=== PATIENT | female | born 2000 | race Hispanic/Latino ===

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

== ENCOUNTER 2021-11-16 00:41 | Observation (INO) | payer OTHER, MEDICAID, SELFPAY ==
[2021-11-16] VITALS (11 sets, daily range): BP systolic 88–147; BP diastolic 45–88; PULSE 100–136; RESP 17–27; TEMP 36.7–37.1; O2SAT 94–100
--- NOTE | 2021-11-16 | PATH_ITS ---
[facility] Accession Number: [id number] . 01 Material submitted: . product of conception - PRODUCTS OF CONCEPTION . 01 Diagnosis: A. Products of Conception, Removal: Immature chorionic villi with abnormal villous architecture; see comment. Decidua, gestational endometrium and implantation site. Fibrin and necroinflammatory debris. . . COMMENT: Mild architectural abnormality is present including inclusions and scalloping of the villi. Given the abnormal villous architecture, p57 immunostain is performed and is positive in the villous stromal cells and the cytotrophoblasts, excluding a complete molar gestation. The differential diagnosis includes a partial mole and hydropic villi. Tissue from block A1 will be sent for ploidy analysis by flow and results will be reported in an addendum. . * This test was developed and its performance characteristics determined by [employer]. It has not been cleared or approved by the U.S. Food and Drug Administration. The FDA has determined that such clearance or approval is not necessary. This test is used for clinical purposes. It should not be regarded as investigational or for research. MRV 11/24/2021 1521 Local . 01 Electronically signed: . Kassandra Reynolds MD, Pathologist NPI- [id number] . 01 Gross description: . The specimen is received in formalin labeled with the patient's name and products of conception, and consists of multiple caputo variable spongy to membranous soft tissue fragments admixed with hemorrhagic material aggregating to 9.1 x 4.4 x 2.3 cm. No tissue is identified. Check Cashier sections are submitted in cassettes A1-A2. ([id number]) /MRV 11/18/2021 1426 Local . 01 Pathologist provided ICD-10: O02.9 . 01 CPT . 511851, A02903 Specimen Comment: A courtesy copy of this report has been sent to [facility] Performed at: 01 [facility] [address] [facility], [place], [place] [id number] MD Steven Ryan MD Phone: [phone]
--- NOTE | 2021-11-16 00:56 | ED.PREGNANCY ---
HPI - General Chief complaint: Urogenital-Female Stated complaint: ABD PAIN Time Seen by Provider: 11/16/21 00:56 Source: patient Mode of arrival: Ambulatory History of Present Illness HPI Narrative: Patient is a 21-year-old female presenting with abdominal cramping and vaginal bleeding. She states that she is about 11-12 weeks she had ultrasound done 3 days ago. It was thought that she was probably miscarrying at that time. As she went home she has an appointment with OBGYN tomorrow. However tonight started having increased abdominal pain. She is says that as soon as she got here she has had excessive vaginal bleeding. It does appear that she is bleeding quite a bit and having abdominal pain. Related Data Allergies Allergy/AdvReac Type Severity Reaction Status Date / Time No Known Drug Allergies Allergy Verified 11/16/21 03:36 Exam Initial Vital Signs Initial Vital Signs: Vital Signs Temperature 98.7 F 11/16/21 00:49 Pulse Rate 119 H 11/16/21 00:49 Respiratory Rate 24 11/16/21 00:49 Blood Pressure 144/69 H 11/16/21 00:49 Pulse Oximetry 100 11/16/21 00:49 Oxygen Delivery Method 11/16/21 00:49 GENERAL: He is alert 21-year-old female appears uncomfortable and in pain HEENT: Head atraumatic,EOMI, pupils reactive, face symmetric, [moist] mucous membranes CARDIOVASCULAR: Regular rate and rhythm without murmurs, rubs or gallops. RESPIRATORY: Breath sounds equal bilaterally, no wheezes rales or rhonchi. ABDOMEN: Soft, tender more on left side than right side Normoactive bowel sounds all 4 quadrants. No guarding or rebound. PELVIC: External genitalia is normal, significant external vaginal blood clots significant blood in vaginal vault requiring suction. Os is open no tissue in on EXTREMITIES: Normal range of motion, no clubbing or edema. Neurovascularly intact NEUROLOGICAL: Alert and oriented x4.Normal gait and speech. SKIN: Warm, dry, no laceration, no petechiae, no rashes or lesions. Course Orders Ordered: ED Orders 11/16/21 00:55 CBC Auto Diff [Complete Blood Count AUTO DIFF] Stat CMP [Comprehensive Metabolic Panel] Stat HCG Quantitative /Beta subunit Stat Lactate (Lactic Acid) Stat 11/16/21 01:11 US OB <= 14 weeks fetus Stat 11/16/21 01:17 Type and Screen Stat 11/16/21 02:21 COVID19 -Nasal RAPID/Pre-Proc Stat Fentanyl (Fentanyl 100 Mcg/2 Ml Inj) 0 mcg IV Q5M PRN PRN Reason: Pain, Moderate (4-6) Hydromorphone HCl (Hydromorphone 2 Mg Inj) 0 mg IV Q5M PRN PRN Reason: Pain, Moderate (4-6) Lactated Ringer's (Lactated Ringers) 1,000 mls @ 100 mls/hr IV CONT ELISSA Last Admin: 11/16/21 03:34 Dose: 100 mls/hr Lactated Ringer's (Lactated Ringers) 1,000 mls @ 42 mls/hr IV CONT ELISSA Last Admin: 11/16/21 04:37 Dose: 42 mls/hr Ondansetron HCl (Ondansetron 4 Mg/2 Ml Inj) 4 mg IV NOW PRN PRN Reason: Nausea And Vomiting Last Admin: 11/16/21 04:38 Dose: 4 mg Oxycodone HCl (Oxycodone Ir 5 Mg Tablet) 5 mg PO PACUNOW PRN PRN Reason: Mild or moderate pain Last Admin: 11/16/21 04:38 Dose: 5 mg Discontinued Medications Hydromorphone HCl (Hydromorphone 0.5 Mg Inj) 0.5 mg IV NOW ONE Stop: 11/16/21 01:49 Last Admin: 11/16/21 01:51 Dose: 0.5 mg Documented By: RICKY Sodium Chloride (Normal Saline 0.9%) 1,000 mls @ 1,000 mls/hr IV BOLUS ONE Stop: 11/16/21 02:10 Last Infusion: 11/16/21 03:10 Dose: 0 mls/hr Documented By: Admin: 11/16/21 01:23 Dose: 1,000 mls/hr Documented By: RICKY Morphine Sulfate (Morphine 2 Mg/Ml Inj) 2 mg IV NOW ONE Stop: 11/16/21 01:30 Last Admin: 11/16/21 01:34 Dose: 2 mg Documented By: RICKY Morphine Sulfate (Morphine 2 Mg/Ml Inj) 2 mg IV NOW ONE Stop: 11/16/21 02:59 Last Admin: 11/16/21 03:05 Dose: 2 mg Documented By: RICKY Vital Signs Vital signs: Vital Signs - 8 hr 11/16/21 00:49 11/16/21 01:43 Temperature 98.7 F Pulse Rate 119 H 113 H Respiratory Rate 24 18 Blood Pressure 144/69 H 147/85 H Pulse Oximetry 100 98 Oxygen Delivery Method Room Air Room Air MDM - OB/Uterine Contractions Lab Data Result diagrams: 11/16/21 00:55 11/16/21 00:55 Labs: Lab Results 11/16/21 11/16/21 11/16/21 Range/Units 00:55 00:55 00:55 WBC 8.9 (4.5-11.0) X10^3/uL RBC 4.55 (4.0-5.2) X10^6/uL Hgb 12.5 (12.0-16.0) g/dL Hct 37.7 (36-46) % MCV 82.8 (80-100) fL MCH 27.6 (26-34) PG MCHC 33.3 (30-36) % RDW 13.5 (11.6-14.8) % Plt Count 270 (150-400) X10^3/uL Neut % (Auto) 63.8 (50-75) % Lymph % (Auto) 27.8 (25-40) % Summers % (Auto) 7.3 (3-14) % Eos % (Auto) 0.8 L (2-4) % Baso % (Auto) 0.3 (0-2) % Neut # (Auto) 5700 (0508-9815) /uL Lymph # (Auto) 2500 (3299-0923) /uL Summers # (Auto) 700 (0-900) /uL Eos # (Auto) 100 (0-450) /uL Baso # (Auto) 0 (0-100) /uL Sodium 137 (137-145) mmol/L Potassium 3.6 (3.4-5.1) mmol/L Chloride 101 (98-107) mmol/L Carbon Dioxide 25 (22-32) mmol/L BUN 8 (7-17) mg/dL Creatinine 0.44 L (0.52-1.04) mg/dL Estimated GFR > 60 (>60) mL/min BUN/Creatinine Ratio 18.2 (6-22) Glucose 110 H (70-100) mg/dL Lactate 1.1 (0.7-2.1) mmol/L Calcium 9.1 (8.4-10.2) mg/dL Total Bilirubin 0.7 (0.2-1.3) mg/dL AST 20 (14-36) IU/L ALT 13 (<35) IU/L Alkaline Phosphatase 81 (38-126) U/L Total Protein 8.0 (6.3-8.2) g/dL Albumin 4.1 (3.5-5.0) g/dL Globulin 3.9 (1.7-4.1) g/dL Albumin/Globulin Ratio 1.1 (1.0-2.8) HCG, Quant 3566.3 mIU/mL SARS-CoV-2 (PCR) (Negative) Blood Type Antibody Screen 11/16/21 11/16/21 Range/Units 01:17 02:21 WBC (4.5-11.0) X10^3/uL RBC (4.0-5.2) X10^6/uL Hgb (12.0-16.0) g/dL Hct (36-46) % MCV (80-100) fL MCH (26-34) PG MCHC (30-36) % RDW (11.6-14.8) % Plt Count (150-400) X10^3/uL Neut % (Auto) (50-75) % Lymph % (Auto) (25-40) % Summers % (Auto) (3-14) % Eos % (Auto) (2-4) % Baso % (Auto) (0-2) % Neut # (Auto) (9865-7907) /uL Lymph # (Auto) (7523-5426) /uL Summers # (Auto) (0-900) /uL Eos # (Auto) (0-450) /uL Baso # (Auto) (0-100) /uL Sodium (137-145) mmol/L Potassium (3.4-5.1) mmol/L Chloride (98-107) mmol/L Carbon Dioxide (22-32) mmol/L BUN (7-17) mg/dL Creatinine (0.52-1.04) mg/dL Estimated GFR (>60) mL/min BUN/Creatinine Ratio (6-22) Glucose (70-100) mg/dL Lactate (0.7-2.1) mmol/L Calcium (8.4-10.2) mg/dL Total Bilirubin (0.2-1.3) mg/dL AST (14-36) IU/L ALT (<35) IU/L Alkaline Phosphatase (38-126) U/L Total Protein (6.3-8.2) g/dL Albumin (3.5-5.0) g/dL Globulin (1.7-4.1) g/dL Albumin/Globulin Ratio (1.0-2.8) HCG, Quant mIU/mL SARS-CoV-2 (PCR) Negative (Negative) Blood Type O Positive Antibody Screen Negative Imaging Data US - DISABILITY INSURANCE CLAIM EXAMINER: Radiologist's Impression: [address] [address] Ultrasound Report Signed Patient: Nell Aiken MR#: [id number] : 2000 Acct:[id number] Age/Sex: 21 / F Date of Service: 11/16/21 Loc: Accession Number: [id number] ?? Procedure: US OB <= 14 weeks fetus Ordering Provider: Funmilayo Lanier D.O. PROCEDURE:? US OB <= 14 WEEKS FETUS ? INDICATIONS:? Likely miscarriage lots of blood ? OUTSIDE/PRIOR DATING DATA:? Last menstrual period (LMP):? Unknown.? First dating scan (date and location):? 10/07/2021.? Estimated date of delivery (ROMERO) from first dating scan:? 06/01/2022. ? TECHNIQUE:? Real-time scanning was performed of the fetus and maternal pelvic organs, with image documentation.? Endovaginal scanning was also performed to better visualize the fetus and maternal ovaries.? ? COMPARISON:? [facility], OB < 14 WEEKS + OB TRANSVAG, 10/07/2021, 20:50.? [facility], OB < 14 WEEKS + OB TRANSVAG, 11/14/2021, 17:33. ? FINDINGS:? ? Embryo:? There is an intrauterine with a gestational sac, yolk sac, and pole redemonstrated.? The crown-rump length measures up to 1.6 cm corresponding to gestational age of 8 weeks 0 days.? Similar to the prior study, no heart motion is identified.? There is interval migration of the gestational sac into the lower uterine segment. ? Maternal organs:? Ovaries not visualized. ? ? IMPRESSION:? ? 1. Findings consistent with demise redemonstrated with interval migration of the gestational sac into the lower uterine segment consistent with a spontaneous in progress.? ? We strive to produce accurate, complete, and clear reports of imaging services. To assist us in improving patient care, this report was composed using standard report templates and voice recognition software. Therefore, it may contain abnormal punctuation, insertions and/or omissions. Occasional wrong-word or sound-alike substitutions may occur. Though we review the report and make efforts to correct it, we do recommend that the report be read carefully in proper context to recognize any text inaccuracies. ? Dictated by: Steven Rangel M.D. on 11/16/2021 at 1:55 ? ? MDM Narrative Medical decision making narrative: The patient had recent ultrasound which confirmed 11 to 12 weeks IUP however I do not have these records. Concern now is for acute is hemorrhage in miscarriage. Ultrasound in the ED confirms demise. Patient is quite tachycardic in pain with significant blood loss at bedside. Patient is having significant pain and contractions. She states morphine did help very much she is given Dilaudid. Blood pressure remains stable however she continues to remain tachycardic which worsens when pain worsens. Dr Srivastava called and notified of patient. She was quickly in the ED at bedside and agreed is patient needs D&C. Discharge Plan Departure Patient Disposition: Admitted to Surgery Clinical Impression: Vaginal hemorrhage, Incomplete Admit Date/Time: 11/16/21 02:35 Admit Provider: Yessy Srivastava
--- NOTE | 2021-11-16 01:11 | DI.US.S_ITS ---
PROCEDURE: US OB <= 14 WEEKS FETUS INDICATIONS: Likely miscarriage lots of blood OUTSIDE/PRIOR DATING DATA: Last menstrual period (LMP): Unknown. First dating scan (date and location): 10/07/2021. Estimated date of delivery (ROMERO) from first dating scan: 06/01/2022. TECHNIQUE: Real-time scanning was performed of the fetus and maternal pelvic organs, with image documentation. Endovaginal scanning was also performed to better visualize the fetus and maternal ovaries. COMPARISON: [facility], , US OB < 14 WEEKS + OB TRANSVAG, 10/07/2021, 20:50. [facility], , US OB < 14 WEEKS + OB TRANSVAG, 11/14/2021, 17:33. FINDINGS: Embryo: There is an intrauterine with a gestational sac, yolk sac, and pole redemonstrated. The crown-rump length measures up to 1.6 cm corresponding to gestational age of 8 weeks 0 days. Similar to the prior study, no heart motion is identified. There is interval migration of the gestational sac into the lower uterine segment. Maternal organs: Ovaries not visualized. IMPRESSION: 1. Findings consistent with demise redemonstrated with interval migration of the gestational sac into the lower uterine segment consistent with a spontaneous in progress. We strive to produce accurate, complete, and clear reports of imaging services. To assist us in improving patient care, this report was composed using standard report templates and voice recognition software. Therefore, it may contain abnormal punctuation, insertions and/or omissions. Occasional wrong-word or sound-alike substitutions may occur. Though we review the report and make efforts to correct it, we do recommend that the report be read carefully in proper context to recognize any text inaccuracies. Dictated by: Steven Rangel M.D. on 11/16/2021 at 1:55 Approved by: Steven Rangel M.D. on 11/16/2021 at 2:01
[2021-11-16] MEDS: SODIUM CHLORIDE 0.9% 1,000 ML 1000 ML IV (01:23)
[2021-11-16 01:30] LABS: Add Manual Diff / Slide Review NO; Basophils Absolute Auto 0 /uL (0-100); Basophils Percent Auto 0.3 % (0-2); Eosinophils Absolute Auto 100 /uL (0-450); Eosinophils Percent Auto 0.8 % (2-4); Hematocrit 37.7 % (36-46); Hemoglobin 12.5 g/dL (12.0-16.0); Lymphocytes Absolute Auto 2500 /uL (1100-4500); Lymphocytes Percent Auto 27.8 % (25-40); Mean Corpuscular HGB Conc 33.3 % (30-36); Mean Corpuscular Hemoglobin 27.6 PG (26-34); Mean Corpuscular Volume 82.8 fL (80-100); Monocytes Absolute Auto 700 /uL (0-900); Monocytes Percent Auto 7.3 % (3-14); Neutrophils Absolute Auto 5700 /uL (1500-7000); Neutrophils Percent Auto 63.8 % (50-75); Platelet Count 270 X10^3/uL (150-400); Red Blood Cell Count 4.55 X10^6/uL (4.0-5.2); Red Cell Distribution Width 13.5 % (11.6-14.8); White Blood Cell Count 8.9 X10^3/uL (4.5-11.0)
--- NOTE | 2021-11-16 01:31 | PC.NURSE ---
Patient passing large clots, reports abdominal cramping. Ultrasound arrives at the bedside.
[2021-11-16] MEDS: MORPHINE 2 MG/ML INJ IV ×2 (01:34→03:05)
[2021-11-16 01:37] LABS: Lactate (Lactic Acid) 1.1 mmol/L (0.7-2.1)
[2021-11-16 01:38] LABS: Alanine Aminotransferase 13 IU/L (<35); Albumin 4.1 g/dL (3.5-5.0); Albumin Globulin Ratio 1.1 (1.0-2.8); Alkaline Phosphatase 81 U/L (38-126); Aspartate Aminotransferase 20 IU/L (14-36); BUN Creatinine Ratio 18.2 (6-22); Bilirubin Total 0.7 mg/dL (0.2-1.3); Blood Urea Nitrogen 8 mg/dL (7-17); Calcium 9.1 mg/dL (8.4-10.2); Carbon Dioxide 25 mmol/L (22-32); Chloride 101 mmol/L (98-107); Estimated Glomerular Filt Rate > 60 mL/min (>60); Globulin 3.9 g/dL (1.7-4.1); Glucose 110 mg/dL (70-100); HEMOLYSIS < 15 (0-50); Potassium 3.6 mmol/L (3.4-5.1); Sodium 137 mmol/L (137-145)
[2021-11-16] MEDS: HYDROMORPHONE 0.5 MG INJ IV (01:51)
[2021-11-16 01:53] LABS: HCG Quantitative /Beta subunit 3566.3 mIU/mL
--- NOTE | 2021-11-16 01:54 | PC.NURSE ---
OBGYN at the bedside
--- NOTE | 2021-11-16 02:05 | PM.GYNHP.1 ---
History of Present Illness History of Present Illness Reason for admission: vaginal bleeding Narrative: Nell Duncan is a 21 year old female who presented to the ED with a known missed A/B, with severe cramping and heavy bleeding. She is 11 weeks by dates, reports ultrasound in [facility] ED showed baby about 8 weeks with a miscarriage. She reports that she was seen in the ED and [facility] yesterday due to 2 dys of vaginal spotting. Reports in the ED she was told that she had a miscarriage. When she went home yesterday, she had onset of heavier bleeding with cramping. The cramping became severe, feels like contractions to her, later that night, about 5 hours ago. Due to the severity of the pain she person the ED. She had onset of heavy bleeding at that time, only changing about a pad every hour, but bleeding became heavier on her arrival. She has a history a vaginal delivery. [facility] Medical History (Updated 11/16/21 @ 03:04 by Yessy Srivastava MD) Healthy adult History of tuberculosis Social History marital status: Exam Vital Signs (past 8 hours): - 11/16/21 00:49 11/16/21 01:43 Temperature 98.7 F Pulse Rate 119 H 113 H Respiratory Rate 24 18 Blood Pressure 144/69 H 147/85 H Pulse Oximetry 100 98 Oxygen Delivery Method Room Air Room Air Oxygen Delivery Method Room Air Narrative Exam Narrative: General: Acute distress episodically when cramping hits. Non ill-appearing CV regular rhythm, tachycardic Lungs clear to auscultation bilaterally Extremities: No edema Perineum: Blood stained. No bleeding currently coming through vagina but chux pads soaked with blood and clots Per ED physician on speculum exam, pooling of blood, suctioned, cervix appeared open, but nothing coming through the cervix. Vagina immediately pooled with blood again. Objective Imaging US - abdomen: Radiologist's impression: [address] [address] Ultrasound Report Signed Patient: Nell Aiken MR#: [id number] : 2000 Acct:[id number] Age/Sex: 21 / F Date of Service: 11/16/21 Loc: ED Accession Number: [id number] ?? Procedure: US OB <= 14 weeks fetus Ordering Provider: Funmilayo Lanier D.O. PROCEDURE:? US OB <= 14 WEEKS FETUS ? INDICATIONS:? Likely miscarriage lots of blood ? OUTSIDE/PRIOR DATING DATA:? Last menstrual period (LMP):? Unknown.? First dating scan (date and location):? 10/07/2021.? Estimated date of delivery (ROMERO) from first dating scan:? 06/01/2022. ? TECHNIQUE:? Real-time scanning was performed of the fetus and maternal pelvic organs, with image documentation.? Endovaginal scanning was also performed to better visualize the fetus and maternal ovaries.? ? COMPARISON:? [facility], OB < 14 WEEKS + OB TRANSVAG, 10/07/2021, 20:50.? [facility], OB < 14 WEEKS + OB TRANSVAG, 11/14/2021, 17:33. ? FINDINGS:? ? Embryo:? There is an intrauterine with a gestational sac, yolk sac, and pole redemonstrated.? The crown-rump length measures up to 1.6 cm corresponding to gestational age of 8 weeks 0 days.? Similar to the prior study, no heart motion is identified.? There is interval migration of the gestational sac into the lower uterine segment. ? Maternal organs:? Ovaries not visualized. ? ? IMPRESSION:? ? 1. Findings consistent with demise redemonstrated with interval migration of the gestational sac into the lower uterine segment consistent with a spontaneous in progress.? ? We strive to produce accurate, complete, and clear reports of imaging services. To assist us in improving patient care, this report was composed using standard report templates and voice recognition software. Therefore, it may contain abnormal punctuation, insertions and/or omissions. Occasional wrong-word or sound-alike substitutions may occur. Though we review the report and make efforts to correct it, we do recommend that the report be read carefully in proper context to recognize any text inaccuracies. ? Dictated by: Steven Rangel M.D. on 11/16/2021 at 1:55 ? ? Approved by: Steven Rangel M.D. on 11/16/2021 at 2:01 ? Labs Result Diagrams: 10/04/22 00:55 11/16/21 00:55 Labs: Laboratory Results - last 24 hr 11/16/21 11/16/21 11/16/21 00:55 00:55 00:55 WBC 8.9 RBC 4.55 Hgb 12.5 Hct 37.7 MCV 82.8 MCH 27.6 MCHC 33.3 RDW 13.5 Plt Count 270 Neut % (Auto) 63.8 Lymph % (Auto) 27.8 Roane % (Auto) 7.3 Eos % (Auto) 0.8 L Baso % (Auto) 0.3 Neut # (Auto) 5700 Lymph # (Auto) 2500 Ro[place] # (Auto) 700 Eos # (Auto) 100 Baso # (Auto) 0 Sodium 137 Potassium 3.6 Chloride 101 Carbon Dioxide 25 BUN 8 Creatinine 0.44 L Estimated GFR > 60 BUN/Creatinine Ratio 18.2 Glucose 110 H Lactate 1.1 Calcium 9.1 Total Bilirubin 0.7 AST 20 ALT 13 Alkaline Phosphatase 81 Total Protein 8.0 Albumin 4.1 Globulin 3.9 Albumin/Globulin Ratio 1.1 Assessment & Plan Assessment and plan (1) Incomplete : Status: Acute (2) Vaginal hemorrhage: Status: Acute Plan . Assessment & Plan narrative: Ultrasound here confirmed 8 week nonviable fetus as well, currently in lower uterine segment, incomplete Ab. She is. Intermittently bleeding heavily, passing large clots. H/H is currently normal. She is tachycardic however. Her biggest concern is that she is having severe pain that she cannot tolerate. She is requiring IV narcotics. She is very nervous regarding anesthesia and hesitant but also does not feel she can continue in the discomfort of the miscarriage.. I discussed the amount of bleeding and tachycardia, even though her hemoglobin is currently normal, risk of becoming severely anemic with then risk for blood transfusion as well, thus I ecommend doing the procedure. Discussed she did have the option however of continuing to attempt spontaneous miscarriage me since hemoglobin stable. She took some time, discussed by phone with her and decided on proceeding with D& C. I reviewed suction dilatation and curettage procedure. Discuss less than 1% risk of the procedure of infection, bleeding, uterine perforation with risk of injury to adjacent organs including bowel bladder. Discussed risk of Asherman syndrome, intrauterine scarring with risk of infertility. Also discussed risk of some retained tissue after the procedure with risk of passing this later with some cramping bleeding or occasionally need for a repeat procedure. She desire to proceed with Verbal and written consent obtained. She confirms that if her blood count was very low and if it was felt to be life-threatening, she would desire a blood transfusion. COVID-19 COVID-19 status: Result pending Time Spent With Patient Time with patient: 30 to 49 minutes with 50% spent counseling/coordinating care Critical Care time: I spent a total of [] minutes of critical care time on this patient's care today; this time is exclusive of procedural time.
[2021-11-16 03:13] LABS: COVID19 -Nasal RAPID Negative (Negative)
--- NOTE | 2021-11-16 03:22 | P.OP_ITS ---
Operative Date/Time/Diagnoses Date of procedure: 11/16/21 Time of procedure: 03:45 Pre-op diagnosis: incomplete miscarriage at 11 weeks by dates, 8 weeks by ultrasound Vaginal hemorrhage severe cramping Post-op diagnosis: same Procedure & Clinicians Procedure: Suction dilatation and curettage Same procedure as scheduled: Yes Indications: 21 yo presented to the ED with known miscarriage diagnosed by ultrasound in the ED elsewhere 1 day ago after presenting with spotting. She had onset of severe cramping and heavy bleeding a few hours prior to presentation to the ED. ultrasound showed an 8 week intrauterine demise, a fetus seen with crown- rump length 8 weeks with absence of cardiac activity. The gestational sac was seen in the lower uterine segment, lower than seen on prior ultrasound her report by Radiology. Discussed with patient proceeding with D&C due to heavy bleeding and the severe cramping. She was tachycardic but hemoglobin currently normal. She desire to proceed with suction D&C. Surgeon: Yessy Srivastava Click Yes if Unassisted: Yes Anesthesia Type: General Operative Notes Findings: Large amount of tissue obtained on suction curettage visibly appearing consistent with products of conception. Closure Type: not applicable Specimen(s): other (Products of conception) Estimated Blood Loss (mL): 150 Blood products transfused: none Procedure in detail: After informed consent was obtained, the patient was taken to the operating room. She was prepped and draped in the usual sterile fashion. Bimanual examination revealed an approximate 14cm size uterus. A speculum was inserted into the vagina. The cervix was easily visualized and grasped with a tenaculum. The cervix was already noted to be dilated with some clot at the os. The cervix was already dilated to the point where a 12 mm dilator passed with ease. An 11 curved suction curette was easily placed. Suction curettage was performed for a large amount of tissue. Amniotic fluid also noted with the initial pass. After several passes no further tissue was obtained. A metal curette was placed and gentle global curettage revealed no further tissue. The suction curette was placed 1 last time. Only some blood and minimal clot obtained. No further tissue obtained. The procedure was thus ended. The tenaculum were removed. There was some persistent bleeding from the right tenaculum site which stopped after pressure and silver nitrate. She only light bleeding through the cervical os. Bimanual examination revealed the uterus to be tameka down well, approximately 12 cm size now. She patient was transferred to the PACU in stable condition. Complications: none Post-operative Condition: stable Disposition: PACU
[2021-11-16] MEDS: LACTATED RINGERS 1,000 ML 100 ML IV (03:34)
--- NOTE | 2021-11-16 04:13 | SUR.OPER ---
Lithotomy on padded OR bed, head on pillow, arms secured on padded arm boards at <90 degrees abduction. Legs secured in padded yellow fins stirrups.
[2021-11-16] MEDS: LACTATED RINGERS 1,000 ML 42 ML IV (04:37)
[2021-11-16] MEDS: ONDANSETRON 4 MG/2 ML INJ IV (04:38)
[2021-11-16] MEDS: OXYCODONE IR 5 MG TABLET PO (04:38)
[2021-11-16 04:41] LABS: Hematocrit 29.7 % (36-46); Hemoglobin 9.9 g/dL (12.0-16.0); Mean Corpuscular HGB Conc 33.4 % (30-36); Mean Corpuscular Hemoglobin 27.9 PG (26-34); Mean Corpuscular Volume 83.4 fL (80-100); Platelet Count 217 X10^3/uL (150-400); Red Blood Cell Count 3.56 X10^6/uL (4.0-5.2); Red Cell Distribution Width 13.5 % (11.6-14.8); White Blood Cell Count 10.5 X10^3/uL (4.5-11.0)
== END 2021-11-16 05:07 | disposition home or self-care (01) ==
LOC: ED 00:56 → AC 02:35
PROVIDERS: Admitting Provider Obstetrics & Gynecology; Emergency Provider Emergency Medicine; Visit Provider Obstetrics & Gynecology
PROC: (CPT 58120; principal; 2021-11-16 03:45)
DX: O03.4 Incomplete spontaneous abortion without complication (principal); Z3A.11 11 weeks gestation of pregnancy
CPT/HCPCS: 59812; 01965; 36415; 76801; 76817; 80053; 83605; 84702; 85025; 85027; 86850; 86900; 86901; 87635; 96361; 96374; 96375; 96376; 99284; C9803; G0378; J0330; J1100; J1170; J1885; J2270; J2405; J2704

== ENCOUNTER 2025-01-11 22:21 | Emergency (ER) | payer OTHER, SELFPAY ==
[2025-01-11 22:24] VITALS: BP 126/77; PULSE 97; RESP 17; TEMP 36.1; O2SAT 98; BMI 35.2
--- NOTE | 2025-01-11 22:34 | ED.RECABL ---
HPI - Recheck/Abnormal Lab/Rx General Chief Complaint: Recheck/Abnormal Lab/Rx Stated Complaint: missed methadone dose Time Seen by Provider: 01/11/25 22:27 Source: patient Mode of arrival: Ambulatory History of Present Illness HPI narrative: 24-year-old female presenting from home for evaluation of medication management, she states that she missed her dose of methadone today, states it is because she was at a , she presents with her bottle showing 124 mg, she is not in active withdrawal, she denies any other symptoms at this time, Related Data Previous Rx's ?Medication ?Instructions ?Recorded ferrous sulfate 325 mg (65 mg 325 mg PO DAILY #30 tabs 11/16/21 iron) tablet Allergies Allergy/AdvReac Type Severity Reaction Status Date / Time No Known Drug Allergies Allergy Verified 01/11/25 22:24 Review of Systems Review of Systems Narrative: General: Positive Medication management, Denies fever, chills, weight loss HEENT: Denies headache, eye drainage, eye irritation, head trauma, sore throat, voice change Cardiovascular: Denies any chest pain, palpitations, tachycardia Respiratory: Denies any shortness of breath, cough, wheeze, stridor GI/: Denies any abdominal pain, nausea, vomiting, diarrhea, bright red blood per rectum, melanotic stools, urinary frequency, urinary retention, dysuria, hematuria MSK: Denies any joint pain, muscle pains, swelling Skin: Denies any rashes, lesions, discoloration Neuro: Denies any headache, lightheadedness, dizziness, fainting, weakness Psych: Denies SI/HI Patient History Medical History History of tuberculosis Healthy adult Social History marital status: household members: significant other tobacco type: vaping Exam Narrative Exam Narrative: General: Cooperative, well-developed, not in acute distress HEENT: Normocephalic, atraumatic, PERRLA, normal sclera, eyelids normal Neck: Active full range of motion, atraumatic Chest: Normal to inspection, negative crepitus, no overlying erythema ecchymosis Respiratory: Normal respiratory effort, not in acute respiratory distress, clear to auscultation bilaterally negative cough, wheeze, tachypnea, rhonchi, rales Cardiology: Regular rate rhythm negative gallop, murmur, rubs GI/: No tenderness to palpation, soft, non rigid, normal to inspection, exam deferred MSK: Full active range of motion in all 4 extremities, atraumatic, no tenderness to palpation of any bony prominences Skin: No rashes or lesions noted Neuro: Alert awake oriented x3, moves all 4 extremities spontaneously, cranial nerves intact, able to answer all questions appropriately follows commands appropriately Psych: Cooperative, negative suicidal or homicidal ideations Initial Vital Signs Initial Vital Signs: Vital Signs Temperature 97.0 F L 01/11/25 22:24 Pulse Rate 97 H 01/11/25 22:24 Respiratory Rate 17 01/11/25 22:24 Blood Pressure 126/77 01/11/25 22:24 Pulse Oximetry 98 01/11/25 22:24 Oxygen Delivery Method Room Air 01/11/25 22:24 Course Orders Ordered: Discontinued Medications Methadone HCl (Methadone 10 Mg Tablet) 124 mg PO NOW ONE Stop: 01/11/25 22:30 Vital Signs Vital signs: Vital Signs - 8 hr 01/11/25 22:24 Temperature 97.0 F L Pulse Rate 97 H Respiratory Rate 17 Blood Pressure 126/77 Pulse Oximetry 98 Oxygen Delivery Method Room Air MDM - Recheck/Abnormal Lab/Rx MDM Narrative Medical decision making narrative: 24-year-old female presenting from home for evaluation of administration of methadone, she states that she missed her dose today due to the fact that she was at a , she presents with her prescription/bottle showing 124 mg, I informed patient that I can give her her dose today but that she needs to follow up with her clinic in order to get additional doses. She is not in active withdrawal she was given strict return precautions she verbalized understanding agrees to being discharged home with outpatient follow up Discharge Plan Departure Patient Disposition: Home Clinical Impression: Encounter for medication management Activity Restrictions/Additional Instructions: Please follow up with your primary care doctor as needed Please read the discharge instructions sheet carefully and bring all papers to all doctor follow-up visits, as it may contain information that your doctor may want to see. Disease processes change and evolve, if your symptoms worsen or if you develop any new symptoms that are concerning to you please return for evaluation. Your evaluation today does not show any evidence of any life-threatening/serious illnesses requiring admission to the hospital or surgery. Please follow-up with your doctor for re-evaluation in approximately 1 day. Seek immediate medical attention for any worrisome symptoms. *If you do not have a primary care provider please contact the [facility] Resource line at [phone]. They will ask some questions about your medical history and help get you set up with a doctor in the community. Prescriptions: No Action ferrous sulfate 325 mg (65 mg iron) tablet 325 mg PO DAILY Qty: 30 1RF Stand Alone Forms: Patient Portal/API
[2025-01-11] MEDS: METHADONE 10 MG TABLET 120 MG PO (22:56)
== END 2025-01-11 23:23 | disposition home or self-care (01) ==
PROVIDERS: Emergency Provider Student in an Organized Health Care Education/Training Program
DX: Z76.0 Encounter for issue of repeat prescription (principal); Z79.891 Long term (current) use of opiate analgesic
CPT/HCPCS: 99283